=== PATIENT | male | born 1945 | race Caucasian/White ===

== ENCOUNTER → 2017-12-06 | Outpatient (CLI) | payer OTHER ==
[~2017-12-06] MED LIST: AMLO10TA6 PO; ASCO10007 PO; ASPI-1181 PO; CITA40TA6 PO; FERR325T22 PO; HYDR25TA PO; METO25TA6 PO; MULT-1077 PO; PANT20TA12 PO; POTA20TA82 PO; PSYL1PAC11 PO; REGADENOSON 0.4 MG/5 ML PF SYG IVP SCH; SIMV40TA5 PO; TAMS0.4C32 PO; TRAM50TA4 PO; VITA100012 PO
== END | disposition home or self-care (01) ==
LOC: SHCH 08:03
PROVIDERS: ATTEND Internal Medicine Cardiovascular Disease
DX: R07.9 Chest pain, unspecified (principal)
CPT/HCPCS: 78452; 93017; 96374; A9500 ×2; J2785

== ENCOUNTER 2018-01-22 05:30 | Day surgery (SDC) | payer OTHER ==
[2018-01-18 12:07] LABS: BASOPHILS % (AUTO) 0.6 % (0.0-5.0); EOSINOPHILS % (AUTO) 4.7 % (0.0-8.0); HEMATOCRIT 43.5 % (42-54); LYMPHOCYTES % (AUTO) 23.4 % (21.0-51.0); MEAN CORPUSCULAR HEMOGLOBIN 29.4 pg (27.0-33.0); MEAN CORPUSCULAR HGB CONC 32.9 g/dL (32.0-36.0); MEAN CORPUSCULAR VOLUME 89.3 fL (79-99); NEUTROPHILS % (AUTO) 58.3 % (40.0-77.0); NUCLEATED RED BLOOD CELLS 0.1 % (0.0-0.19); PLATELET COUNT (AUTO) 225 K/uL (130-400); RED BLOOD CELL COUNT(AUTO) 4.87 MIL/uL (4.50-6.20); RED CELL DISTRIBUTION WIDTH 14.3 % (11.0-15.5); WHITE BLOOD COUNT (AUTO) 7.3 K/uL (4.8-10.8)
[2018-01-18 12:09] VITALS: BP 145/78
[2018-01-18 12:12] LABS: APPEARANCE,URINE Clear (CLEAR); BILIRUBIN,URINE Negative (NEGATIVE); COLOR,URINE Yellow (YELLOW); GLUCOSE, URINE (UA) Negative (NEGATIVE); KETONES,URINE Negative (NEGATIVE); LEUKOCYTE ESTERASE ,URINE Negative (NEGATIVE); NITRATE,URINE Negative (NEGATIVE); OCCULT BLOOD,URINE Negative (NEGATIVE); PH,URINE 5.5 (5.0-8.0); PROTEIN,URINE Negative (NEGATIVE); UROBILINOGEN,URINE 0.2 mg/dL (0.2-1.0)
[2018-01-18 12:15] LABS: CREATININE 0.9 mg/dL (0.5-1.5)
[2018-01-18 12:19] LABS: INR 0.98 (0.85-1.15); PARTIAL THROMBOPLASTIN TIME 29.4 SEC (26.3-35.5); PROTHROMBIN TIME 10.3 SEC (9.6-11.6)
[2018-01-22] VITALS (11 sets, daily range): BP systolic 116–146; BP diastolic 64–78
[~2018-01-22] VITALS: Ht 185.4 cm; Wt 152.2 kg
[~2018-01-22 05:30] MED LIST changes: +ACET-66 PO; +ATOR40TA71 PO; -FERR325T22 PO; -HYDR25TA PO; -METO25TA6 PO; +METO50TA18 PO; -POTA20TA82 PO; -PSYL1PAC11 PO; -REGADENOSON 0.4 MG/5 ML PF SYG IVP SCH; -SIMV40TA5 PO; -VITA100012 PO; +VITA400C19 PO
[2018-01-22] MEDS ORDERED: SODIUM CHLORIDE 0.9% 1000ML 1,000 ML IV ONE (07:14)
[2018-01-22] MEDS ORDERED: IOHEXOL 350 MG/ML 100ML INFUS..BTL IV ONE (09:14)
[2018-01-22] MEDS ORDERED: NITROGLYCERIN 5 MG/ML 10 ML VIAL IV ONE (09:14)
[2018-01-22] MEDS ORDERED: SODIUM BICARB 50MEQ 50ML VIAL ONE (09:14)
[2018-01-22] MEDS ORDERED: IOHEXOL-350 50ML VIAL IV ONE (09:14)
[2018-01-22] MEDS ORDERED: LIDOCAINE HCL 2% 20ML ONE (09:14)
[2018-01-22] MEDS ORDERED: HEPARIN SODIUM 1000UNIT/ML 10ML VIAL ONE (09:14)
[2018-01-22] MEDS ORDERED: SODIUM CHLORIDE 0.9% 1000ML 1,000 ML IV SCH (10:44)
== END 2018-01-22 16:50 | disposition home or self-care (01) ==
LOC: DAH 05:30
PROVIDERS: ATTEND Internal Medicine Cardiovascular Disease
DX: I25.119 Atherosclerotic heart disease of native coronary artery with unspecified angina pectoris (principal); I25.82 Chronic total occlusion of coronary artery; I10 Essential (primary) hypertension; E78.5 Hyperlipidemia, unspecified; G47.30 Sleep apnea, unspecified; K21.9 Gastro-esophageal reflux disease without esophagitis; E66.01 Morbid (severe) obesity due to excess calories; Z90.49 Acquired absence of other specified parts of digestive tract; Z98.890 Other specified postprocedural states; Z82.49 Family history of ischemic heart disease and other diseases of the circulatory system; Z95.1 Presence of aortocoronary bypass graft
CPT/HCPCS: 36415; 71045; 80048; 81003; 85025; 85347 ×2; 85610; 85730; 92920; 93005; 93459; 93567; A4606; C1725; C1760; C1769 ×2; C1887; C1894 ×2; J1644 ×2; J3490 ×3; J7030; Q9965 ×2; Q9967 ×2